=== PATIENT | male | born 1970 | race Caucasian/White ===

== ENCOUNTER → 2020-12-12 | Outpatient (REF) | payer BC ==
[2020-12-12 13:43] LABS: APPEARANCE, URINE CLEAR (CLEAR); BACTERIA, URINE AUTO NEGATIVE (NEGATIVE); BILIRUBIN, URINE AUTO NEGATIVE (NEGATIVE); BLOOD, URINE BLOOD NEGATIVE (NEGATIVE); COLOR, URINE YELLOW (YELLOW); GLUCOSE, URINE (UA) AUTO 3+ mg/dL (NEGATIVE); KETONE, URINE AUTO NEGATIVE (NEGATIVE); LEUKOCYTE ESTERASE, URINE AUTO NEGATIVE (NEGATIVE); NITRITE, URINE AUTO NEGATIVE (NEGATIVE); PROTEIN, URINE AUTO NEGATIVE (NEGATIVE); RBC, URINE AUTO 0 /HPF (0-3); SPECIFIC GRAVITY URINE AUTO 1.014 (1.002-1.035); SQUAMOUS EPITHELIAL CELL UR AU 0 /HPF (0-6); UROBILINOGEN, URINE AUTO 0.2 mg/dL (0.0-2.0); WBC, URINE AUTO 1 /HPF (0-3)
== END ==
LOC: M SMT 12:55
PROVIDERS: ATTEND Nurse Practitioner Family
DX: N20.0 Calculus of kidney (principal)

== ENCOUNTER → 2021-01-31 | Outpatient (CLI) | payer BC ==
[~2021-01-31] MED LIST: ARIP1TAB6 PO; BUPR150T12 PO; CALC600C3 PO; CVS1CHW13 PO; ESOM40CA35 PO; FENO200C PO; FISH1000 PO; FLUT1BLS6 INH; HYDR-4571; HYDR200T3 PO; MECL-86 PO; METF-838 PO; MONT10TA10 PO; MULT-90 PO; OLME40TA PO; PURE500C5 PO; QUIN1TAB4; TAMS1CAP17; ZOCO80TA PO
== END ==
LOC: M LABSMTC 12:17
PROVIDERS: ATTEND Anesthesiology
DX: Z01.812 Encounter for preprocedural laboratory examination (principal); Z20.822 Contact with and (suspected) exposure to COVID-19

== ENCOUNTER 2021-02-05 05:58 | Day surgery (SDC) | payer BC ==
[~2021-02-05] VITALS: Ht 182.9 cm; Wt 122.4 kg
[2021-02-05] MEDS ORDERED: ceFAZolin SOD 1 GM in D5W MINI-BAG PLUS 50 ML IV ONE (06:00)
[2021-02-05] MEDS ORDERED: ceFAZolin SOD 2 GM in IV 1 EA IV ONE (06:00)
[2021-02-05] MEDS ORDERED: fentaNYL 100 MCG/2 ML INJECTION (J3010) As Ordered ONE (06:49)
[2021-02-05] MEDS ORDERED: MIDAZOLAM INJ 2MG/2ML VIAL (J2250 PER 1MG) As Ordered ONE (06:49)
[2021-02-05] MEDS ORDERED: propofoL 200 MG/20 ML VIAL As Ordered ONE (06:50)
[2021-02-05] MEDS ORDERED: LIDOCAINE 2% 100MG/5ML SDV (FOR ANES.) As Ordered ONE (06:50)
[2021-02-05] MEDS ORDERED: ACETAMINOPHEN 1000MG 100ML IV BTL (OFIRMEV) (J0131 PER 10MG) As Ordered ONE (06:50)
[2021-02-05] MEDS ORDERED: ePHEDrine SULFATE 25 MG/5 ML(5MG/ML) SYRINGE As Ordered ONE (06:50)
[2021-02-05] MEDS ORDERED: dexameTHASONE 4 MG/ML 1ML VIAL (J1100 PER 1MG) As Ordered ONE ×2 (06:50→08:19)
[2021-02-05] MEDS ORDERED: ONDANSETRON 4MG/2ML VIAL As Ordered ONE (06:50)
[2021-02-05] MEDS ORDERED: PHENYLephrine 500MCG 5ML (100MCG/ML) SYRINGE As Ordered ONE (06:50)
[2021-02-05] MEDS ORDERED: LR 1,000 ML IV ONE (07:30)
[2021-02-05] MEDS ORDERED: fentaNYL 100 MCG/2 ML INJECTION (J3010) IV PRN (09:10)
[2021-02-05] MEDS ORDERED: OXYC1TAB23 PO (09:10)
[2021-02-05] MEDS ORDERED: PERCOCET 5MG/325MG TAB PO PRN ×2 (09:10→09:15)
[2021-02-05] MEDS ORDERED: LR 1,000 ML IV SCH (09:10)
[2021-02-05] MEDS ORDERED: ONDANSETRON 4MG/2ML VIAL IV PRN (09:10)
[2021-02-05 09:55] VITALS: BP 134/64
[2021-02-05] MEDS ORDERED: CONRAY-60 60% 50ML VIAL (Q9961) As Ordered ONE (10:39)
--- NOTE | 2021-02-05 12:54 | RO ---
OPERATIVE NOTE DATE OF OPERATION: 02/05/2021 PREOPERATIVE DIAGNOSIS: Right kidney and ureteral stones. POSTOPERATIVE DIAGNOSIS: Right kidney and ureteral stones. PROCEDURES: Cystoscopy, right ureteroscopy with laser lithotripsy and basket extraction of stones, right retrograde pyelogram with intraoperative interpretation of images, right ureteral stent placement. SURGEON: Dr. Be Maldonado DRY CANS OPERATOR: None. ANESTHESIA: General. OPERATIVE INDICATIONS: This is a 50-year-old male who was found to have obstructing distal right ureteral stones measuring around 4-5 mm in size. There were two of them. He was also found to have an approximately 4-5 mm stone in the right kidney. He is brought to the operating room today for treatment. DESCRIPTION OF PROCEDURE: The patient was brought to the operating room and general anesthesia was induced. Prophylactic antibiotics were infused. He was then placed in the dorsal lithotomy position and prepped and draped in the usual sterile fashion. There was a cystoscope inserted in the urethral meatus and advanced to the bladder. A guidewire was advanced into the right collecting system. I went up the right collecting system with a short semirigid ureteroscopy, and within the distal ureter it was noted to be very edematous. Just beyond the level of edema the obstructing stones were seen. These stones were broken down into smaller fragments using a 272 micron laser fiber, and then all the fragments were removed using a basket. I then examined the more proximal ureter, and no additional stones were seen. I then withdrew the short semirigid ureteroscope and advanced a ureteral access sheath up the right collecting system. I went up the access sheath with a flexible ureteroscopy and examined the right kidney thoroughly. Within the mid pole inocencio there an approximately 4 mm stone. The stone was grasped with a basket and withdrawn. No additional stones were seen. A retrograde pyelogram was performed. It was notable for mild to moderate right hydronephrosis with no extravasation. I then withdrew the ureteroscope along with the access sheath, and no additional stones were seen inside the ureter. I then utilized the guidewire to advance a 6-Niue[place] x 22-32 cm JJ ureteral stent up the right collecting system. The wire was removed, and there were adequate coils in the stent in the right renal pelvic and in the bladder. The bladder was then emptied of all fluids, and this marked the conclusion of the procedure. Patient was taken out of the dorsal lithotomy position, awakened from anesthesia, and transferred to the recovery room in stable condition. ESTIMATED BLOOD LOSS: 10 mL. COMPLICATIONS: None. SPECIMENS: Kidney stone fragments. PLAN: The patient will be followup in the urology clinic in a few weeks for stent removal.
--- NOTE | 2021-02-05 12:58 | REP ---
INDICATION: RIGHT STENT PLACEMENT. COMPARISON: None. TECHNIQUE: Three C-arm views abdomen and pelvis. FINDINGS: The right pelvocaliceal system is partially opacified with contrast. A right ureteral stent is placed, the proximal end is in the right renal pelvis and the distal end is in the urinary bladder. IMPRESSION: 11 seconds of fluoroscopy time was utilized. <Electronically signed by Perfecto Peng > 02/05/21 [id number]
== END 2021-02-05 09:55 | disposition home or self-care (01) ==
LOC: M SDC 05:58
PROVIDERS: ATTEND Urology
DX: N20.2 Calculus of kidney with calculus of ureter (principal); I10 Essential (primary) hypertension; E11.9 Type 2 diabetes mellitus without complications; E78.5 Hyperlipidemia, unspecified; K21.9 Gastro-esophageal reflux disease without esophagitis; G47.33 Obstructive sleep apnea (adult) (pediatric); N40.0 Benign prostatic hyperplasia without lower urinary tract symptoms; J45.909 Unspecified asthma, uncomplicated; F41.9 Anxiety disorder, unspecified; F32.9 Major depressive disorder, single episode, unspecified; Z88.8 Allergy status to other drugs, medicaments and biological substances; Z79.84 Long term (current) use of oral hypoglycemic drugs; Z79.899 Other long term (current) drug therapy
CPT/HCPCS: 52356; 74420; 82365; 88300; C1769; C1894; C2617; J0131; J0690; J1100; J2250; J2370; J2405; J3010; Q9961